=== PATIENT | male | born 1965 | race Caucasian/White ===

== ENCOUNTER 2019-11-28 08:17 | Outpatient (CLI) | payer OTHER, SELFPAY ==
--- NOTE | 2019-11-28 08:00 | DI.RAD_ITS ---
EXAM: XR ANKLE RT COMPLETE CLINICAL HISTORY: ankle pain. TECHNIQUE: 2D digital imaging was performed. COMPARISON: No exams were available for comparison FINDINGS: BONES: No acute fracture is present. No bony destructive lesion is seen. JOINTS: The ankle mortise is normally aligned. SOFT TISSUE: Normal. IMPRESSION: Unremarkable radiographs of the right ankle. DATA REPOSITORY: RADIATION DOSE DELIVERED:
== END 2019-11-28 08:37 ==
PROVIDERS: Visit Provider Physician Assistant
DX: M25.571 Pain in right ankle and joints of right foot (principal)
CPT/HCPCS: 73610

== ENCOUNTER 2019-12-12 00:32 | Outpatient (CLI) | payer OTHER, SELFPAY ==
--- NOTE | 2019-12-12 08:32 | DI.MRI_ITS ---
EXAM: MR LOWER JOINT RT WO CLINICAL HISTORY: R ankle injury, S99.919A., WORK INJURY TECHNIQUE: Multiplanar multisequence MRI was performed. COMPARISON: XR ANKLE RT COMPLETE from 11/28/2019 FINDINGS: MR examination of the ankle was performed according to the usual protocol. Note is made of apparent d egenerative cyst formation of the distal aspect of the medial cuneiform. No other significant bony a bnormality seen involving the midfoot structures and the midfoot ligaments and tendons appear intact . In the ankle proper, the following findings are noted: Bones: There is abnormal signal and apparent cortical disruption of the posterior aspect of the dista l tibia which minimally involves the articular surface posteriorly. Minimally abnormal signal also n oted in distal fibula, no definite fibular fracture seen. No calcaneal or talar fracture identified. Ligaments: There is abnormal signal in the posterior inferior tibiofibular ligament, the transverse t ibiofibular ligament, and the anterior syndesmotic ligament. No full-thickness tear is seen although small partial-thickness intrasubstance tears may be present. There is no gross disruption of the an kle mortise. No significant abnormality of the talofibular or tibiotalar ligaments seen. Cartilage: The articular cartilage of the joints of the ankle appears intact. Tendons: No tendinous tear identified in the ankle. Additional: Attachment osteophyte of plantar fascia noted with mildly abnormal signal in the attachme nt osteophyte, however no gross plantar fascia signal abnormality is seen. Achilles tendon and humberto cent structures appear intact. IMPRESSION: There is an apparent nondisplaced fracture of the posterior most aspect of the distal tibia with mini mal involvement of the articular surface posteriorly. Ligamentous sprains without full thickness tea r is noted involving posterior and anterior tibiofibular ligaments as described above. No gross disruption of the ankle mortise. Probable fibular bony trabecular injury without fracture. DATA REPOSITORY:
== END 2019-12-12 00:52 ==
PROVIDERS: PCP Family Medicine Adult Medicine; Visit Provider Student in an Organized Health Care Education/Training Program
DX: M25.571 Pain in right ankle and joints of right foot (principal); S93.431A Sprain of tibiofibular ligament of right ankle, initial encounter; S82.391A Other fracture of lower end of right tibia, initial encounter for closed fracture
CPT/HCPCS: 73721